=== PATIENT | female | born 1975 | race Caucasian/White ===

== ENCOUNTER → 2020-01-14 | Outpatient (CLI) | payer BC ==
[~2020-01-14] MED LIST: MELO15TA24 PO; VITA1TAB19 PO
== END | disposition home or self-care (01) ==
LOC: MERGE 10:36 → CFH 10:36
PROVIDERS: ATTEND Internal Medicine Cardiovascular Disease
DX: R07.9 Chest pain, unspecified (principal)
CPT/HCPCS: 93306